=== PATIENT | female | born 1990 | race Caucasian/White ===

== ENCOUNTER 2017-06-27 10:25 | Emergency (ER) | payer OTHER ==
--- NOTE | 2017-06-27 13:23 | OBHP ---
Datetime: 06/27/2017 10:36 IP Adm Impression: Term, intrauterine ; No Active Labor IP Admit Plan: Observation/Evaluation; Discharge home Admit Comment, IP Provider: 26yo with IUP at 39.1wks reporting here today with suspected LOF an d pelvic cramps since 7 am. She denies any VB but feels good movement. [place]-Q 3-6 Fhr: Category 1, Cx-1-2/30/-3, Vertex, Speculum exam: No gross pooling, Nitrazine negat katlyn IUP at 39.1 wks Irregular contractions Plan: Reevaluate in 1 hour. 13:09: Reevaluated. Pt reports that the pain scale3-4, Cx- 1-2/30/-3 Assessment: IUP at 39wks Irregular labor. Plan: D/C home. Labor instructions given. Pt asked to return with strong contractions. F/U with OB clinic if no established labor. Pelvic Type - PN: Adequate Extremities - PN: Normal Abdomen - PN: Normal Back - PN: Normal Breast - PN: Normal Lungs - PN: Normal Heart - PN: Normal Thyroid - PN: Normal Neurologic - PN: Normal HEENT - PN: Normal General - PN: Normal Presentation-Admit: Vertex FHR - Baseline A Provider: 150 Contraction Comments Provider: Q 4-6 Gestation - Est Wks by US: 39.1 IP Chief Complaint: Uterine contractions; Maternal discomfort NICHD Variability Prov Fetus A: Moderate 6-25bpm NICHD Accel Fetus A IP Provider: 15X15 FHR Category Provider Fetus A: Category II NICHD Decel Fetus A IP Provider: None Dilatation, Provider: 2 Effacement, Provider: 30 Station, Provider: -3 Genitourinary Exam: Normal DTRs - PN: Normal
[2017-06-27 13:30] VITALS: RESP 20; O2SAT 99
[2017-06-27 17:32] VITALS: BP 128/82; PULSE 73; TEMP 97.8
== END 2017-06-27 13:29 | disposition home or self-care (01) ==
LOC: C.EROB 10:25
DX: O47.1 False labor at or after 37 completed weeks of gestation (principal); Z3A.39 39 weeks gestation of pregnancy

== ENCOUNTER 2017-06-27 22:38 | Inpatient (IN) | payer OTHER ==
[2017-06-27 22:58] VITALS: BMI 34.2
--- NOTE | 2017-06-27 23:01 | OBADHP ---
Datetime: 06/27/2017 22:51 Admit Comment, IP Provider: IUP at 39wks returns here today c/o increased contractions, Denies VB or Lof. [place]- Q 2-3, FHR- 140s ,Category 1, Cx-3-4/80/-2, Vertex felt Assessment: IUP at 39wks in active labor Plan: Admit to L _ D for labor monitoring. Pelvic Type - PN: Adequate Extremities - PN: Normal Abdomen - PN: Normal Back - PN: Normal Breast - PN: Normal Lungs - PN: Normal Heart - PN: Normal Thyroid - PN: Normal Neurologic - PN: Normal HEENT - PN: Normal General - PN: Normal Presentation-Admit: Vertex FHR - Baseline A Provider: 140 Membranes, Provider: Intact Contraction Comments Provider: Q 2-3 Gestation - Est Wks by US: 39.0 Vital Signs Provider: Reviewed IP Chief Complaint: Uterine contractions; Maternal discomfort NICHD Variability Prov Fetus A: Moderate 6-25bpm NICHD Accel Fetus A IP Provider: 15X15 FHR Category Provider Fetus A: Category I NICHD Decel Fetus A IP Provider: None Dilatation, Provider: 3 Effacement, Provider: 80 Station, Provider: -2 Genitourinary Exam: Normal DTRs - PN: Normal EGA AdmitDate IP: 39.1 IP Adm Impression: Term, intrauterine ; Active labor IP Admit Plan: Admit to unit; Initiate labor protocol
[2017-06-27 23:30] LABS: SQUAMOUS EPITHIAL 1 /hpf (0-5); URINE BACTERIA RARE (<OCC); URINE BILIRUBIN NEGATIVE (NEGATIVE); URINE BLOOD 3+ (NEGATIVE); URINE CLARITY Clear (Clear); URINE COLOR Yellow (YELLOW); URINE GLUCOSE (UA) NORMAL (Normal); URINE LEUKOCYTE ESTERASE TRACE Leu/uL (Negative); URINE NITRATE NEGATIVE (NEGATIVE); URINE PROTEIN NEGATIVE (NEGATIVE); URINE UROBILINOGEN NORMAL mg/dL (0.2-1.0)
[2017-06-27 23:31] LABS: ALBUMIN 3.4 g/dL (3.5-5.0)
[2017-06-27 23:34] LABS: AST/SGOT 17 U/L (14-36); GFR AFRICAN-AMERICAN > 60; GFR NON-AFRICAN AMERICAN > 60
[2017-06-27 23:35] LABS: ALT/SGPT 17 U/L (9-52); BLOOD UREA NITROGEN 8 mg/dL (7-17); CALCIUM 9.1 mg/dl (8.6-10.4)
[2017-06-27 23:50] LABS: BASO % 0.1 % (0.0-2.0); EOS % 0.3 % (0.0-4.0); HEMOGLOBIN 11.2 g/dL (11.0-16.0); LYMPH # 1.8 K/uL (1.0-4.3); LYMPH % 16.1 % (20.0-40.0); MEAN CELL VOLUME 82.8 fL (81.0-99.0); MEAN CORPUSCULAR HEMOGLOBIN 27.1 pg (27.0-31.0); MEAN CORPUSCULAR HGB CONC 32.7 g/dL (33.0-37.0); MEAN PLATELET VOLUME 9.8 fL (7.2-11.7); MONO # 0.7 K/uL (0.0-0.8); NEUT # 8.8 K/uL (1.8-7.0); NEUT % 77.5 % (50.0-75.0); RBC 4.14 Mil/uL (3.80-5.20); RED CELL DISTRIBUTION WIDTH 14.1 % (11.5-14.5); WHITE BLOOD COUNT 11.4 K/uL (4.8-10.8)
[2017-06-28] MEDS ORDERED: Bupivacaine 0.125%/FentaNYL 200 ML EPI ONE (00:29)
[2017-06-28] MEDS: Lactated Ringer's 1,000 ML IV SCH ×2 (06:10)
--- NOTE | 2017-06-28 06:16 | OBPN ---
Datetime: 06/28/2017 06:11 IP Progress Impression: Normal progression of labor; Reassuring heart rate IP Procedures: Artificial ROM; Sterile Vag Exam IP Progress Plan: Continue present management; Anticipate Vaginal Delivery Membranes, Provider: Ruptured Amniotic Fluid Color, Provider: Clear Contraction Comments Provider: Q 2-3 FHR - Baseline A Provider: 150 Gestation - Est Wks by US: 39.2 Presentation-Admit: Vertex IP Progress Note Comment: IUP at 39.2 in labor. Plan: Continue current management. Vital Signs Provider: Within Normal Limits NICHD Accel Fetus A IP Provider: 15X15 FHR Category Provider Fetus A: Category I NICHD Variability Prov Fetus A: Moderate 6-25bpm Dilatation, Provider: 5 Effacement, Provider: 100 Station, Provider: -2 NICHD Decel Fetus A IP Provider: None
--- NOTE | 2017-06-28 08:07 | OBPN ---
Datetime: 06/28/2017 08:01 IP Progress Impression: Normal progression of labor IP Procedures: Sterile Vag Exam IP Progress Plan: Continue present management Contraction Comments Provider: every 1-2 min FHR - Baseline A Provider: 150 Gestation - Est Wks by US: 39.2 Weight - Estimated: 3200 Presentation-Admit: Vertex IP Progress Note Comment: S-patient comfortable with epidural FHT 150s. min- mod baldomero, occ variable Tco ctx q 1-2min sve 9/100/+1 A/P Patient in labor at 39.2 wga . -continue current management -anticipate nvd Vital Signs Provider: Reviewed; Within Normal Limits NICHD Variability Prov Fetus A: Moderate 6-25bpm Dilatation, Provider: 9 Effacement, Provider: 100 Station, Provider: 1 NICHD Decel Fetus A IP Provider: Variable
[2017-06-28] MEDS ORDERED: Lidocaine 2% Inj (20ml) ONE (10:30)
[2017-06-28] MEDS ORDERED: Oxycodone/Acetaminophen 5/325 mg Tab PO PRN ×2 (11:38)
[2017-06-28] MEDS ORDERED: Benzocaine/Menthol 20%-0.5% Topical Spray (60 ml) TOP PRN (11:38)
--- NOTE | 2017-06-28 11:46 | OBDS ---
DELIVERY PERSONNEL Delivery Doctor: Wil Lepe MD Helper Coordinator: Sandra Appiah RN Anesthesiologist: leah MATERNAL INFORMATION Delivery Anesthesia: Epidural Estimated Blood Loss (ml): 350 Placenta Cultured: No Provider Comments: Patient pushing and exhausted.Median episiotomy gdone. of a male from L OA position.Nuchalx1 around neck tight.Cord clamped and cut.Body and shoulders delivered with diffiuc lty. handed over to the pediatrciain.Placenta spontaneously delivered.Episiotomy repaired with 2-0 chromic.Fundus firm.patient stable.ebl 350cc LABOR SUMMARY EDC: 07/03/2017 00:00 No. Babies in Womb: 1 Attempted: No Labor Anesthesia: Epidural LABOR INFORMATION Reason for Induction: Not Applicable Onset of Labor: 06/27/2017 19:00 Complete Dilatation: 06/28/2017 09:10 Oxytocin: N/A Group B Beta Strep: Negative Antibiotics # of Doses: 0 Steroids Given: None Reason Steroids Not Administered: Not Applicable MEMBRANES Membranes Rupture Method: Artificial Rupture of Membranes: 06/28/2017 06:07 Amniotic Fluid Color: Clear Amniotic Fluid Amount: Moderate Amniotic Fluid Odor: Normal STAGES OF LABOR Stage 1 hrs: 14 Stage 1 min: 10 Total Time in Labor hrs: 16 Total Time in Labor min: 5 VAGINAL DELIVERY Episiotomy: Median Laceration Extension: N/A Laceration Type: None Laceration Repair: Not Applicable Laceration Repair Note: episiotomy repiared with 2-0 chromic Initial Vag Sponge Count: 9 Initial Vag Sharps Count: 0 Final Vag Sharps Count: 2 Sponge Count Correct: Yes; Vaginal Sweep Performed Sharps Count Correct: Yes Count Comment: PRESENTATION/POSITION BABY A Presentation: Cephalic Cephalic Presentation: Vertex Vertex Position: Left Occipital Anterior PLACENTA INFORMATION BABY A Placenta Delivery Time : 06/28/2017 11:05 Placenta Method of Delivery: Spontaneous Placenta Status: Delivered SCORES BABY A Heart Rate 1 min: >100 bpm Resp Effort 1 min: Good Cry Reflex Irritability 1 min: Cough or Sneeze or Pulls Away Muscle Tone 1 min: Active Motion Color 1 min: Body [place], Extremities Blue Resuscitation Effort 1 min: Tactile Stimulation SCORE 1 MIN: 9 Heart Rate 5 min: >100 bpm Resp Effort 5 min: Good Cry Reflex Irritability 5 min: Cough or Sneeze or Pulls Away Muscle Tone 5 min: Active Motion Color 5 min: Body [place], Extremities Blue Resuscitation Effort 5 min: Tactile Stimulation SCORE 5 MIN: 9 INFORMATION BABY A Gestational Age at Delivery: 39.2 Gestational Status: Term Outcome : Liveborn Infant Condition : Stable Sex: Male IDENTIFICATION/MEDS BABY A ID Band Number: [id number] ID Band Location: Left Leg; Left Arm Sensor Applied: Yes Sensor Number: [id number] Sensor Location : Cord Clamp Vitamin K Given : Aquamephyton 1 mg IM; Left Thigh Erythromycin Given: Given Both Eyes WEIGHT/LENGTH BABY A Infant Birthweight (gms): 2830 Infant Weight (lb): 6 Infant Weight (oz): 4 Length Inches: 19.00 Length cms: 48.3 CORD INFORMATION BABY A No. Cord Vessels: 3 Nuchal Cord : Around Neck x1, Tight Cord Blood Taken: N/A
[2017-06-29 07:40] VITALS: O2SAT 100
--- NOTE | 2017-06-29 07:45 | OBPPN ---
Datetime: 06/29/2017 07:42 PP Pain Prov: Within normal limits PP Nausea Prov: Denies PP Flatus Prov: Yes PP Abdomen/Uterus Prov: Normal PP Lochia Prov: Normal PP Extremities Prov: Normal PP Comments Phys Exam Prov: fudus below umblicus ext no edema,no calf ten PP Impression Prov: Normal progression PP Plan Prov: Continue present management PP Progress Note Prov: pt was seen at bed side, pain under control,no n/v, tolerating deit,voiding,m in lochia, flatus+ ppd#1 s/p cbc reg deit cont pp care cont pain delio Vital Signs Provider PP: Reviewed; Within Normal Limits
[2017-06-29 08:16] LABS: BASO % 0.2 % (0.0-2.0); EOS # 0.1 K/uL (0.0-0.7); EOS % 0.4 % (0.0-4.0); HEMOGLOBIN 10.8 g/dL (11.0-16.0); LYMPH % 13.3 % (20.0-40.0); MEAN CORPUSCULAR HEMOGLOBIN 27.4 pg (27.0-31.0); MEAN PLATELET VOLUME 9.5 fL (7.2-11.7); MONO # 0.6 K/uL (0.0-0.8); MONO % 3.9 % (0.0-10.0); NEUT # 12.2 K/uL (1.8-7.0); NEUT % 82.2 % (50.0-75.0); RBC 3.92 Mil/uL (3.80-5.20); RED CELL DISTRIBUTION WIDTH 14.2 % (11.5-14.5); WHITE BLOOD COUNT 14.8 K/uL (4.8-10.8)
--- NOTE | 2017-06-30 08:09 | OBDCSUM ---
Datetime: 06/30/2017 08:04 Discharged to, Provider: Home Follow up at, Provider: obgyn clinic Disch Instr Diet: Regular Discharge Instructions, Provider: Routine instructions given Discharge Diagnosis, Provider: Term Delivered Discharge Time: 06/30/2017 08:04 Follow up in weeks, Provider: 6 weeks Disch Activity Restrictions: No exercising; No lifting; No driving; No sexual activity; Nothing in v agina - [place], tampons, douche Discharge Comment, Provider: go to er if you have fever, severe pain, heavy bleeding, pain or rednes s in calf muscles or any other problems
--- NOTE | 2017-06-30 08:12 | OBPPN ---
Datetime: 06/30/2017 08:02 PP Pain Prov: Within normal limits PP Nausea Prov: Denies PP Flatus Prov: Yes PP BM Prov: Yes PP Heart Prov: Normal PP Lungs Prov: Normal PP Lochia Prov: Normal PP CVA Tenderness Prov: Normal PP Extremities Prov: Normal PP C/S Incision Prov: Not Applicable PP Progress Prov: Normal PP Impression Prov: Normal progression PP Plan Prov: Discharge PP Progress Note Prov: S-patient denies any complaints.Denies nausea, vomiting, headache, chest pain , shortness of breath, numbness or tingling in hands and feet O-VSS Afebrile Fundus firm and below umbilcus Extremities no calf tenderness A/P Patient s/p vaginal delivery PPD 2 doing well -discharge today -follow up in clinic in 6 weeks Vital Signs Provider PP: Reviewed; Within Normal Limits
[2017-06-30 08:27] VITALS: BP 123/73; PULSE 90; RESP 18; TEMP 98.9
== END 2017-06-30 11:40 | disposition home or self-care (01) | DRG 373 ==
LOC: C.EROB 22:38 → C.4D 23:04 → C.4M 06-28 14:22
PROVIDERS: ADMIT Obstetrics & Gynecology; ATTEND Obstetrics & Gynecology
PROC: 10E0XZZ Delivery of Products of Conception, External Approach (ICD-10-PCS; principal; 2017-06-28)
PROC: 0W8NXZZ Division of Female Perineum, External Approach (ICD-10-PCS; 2017-06-28)
PROC: 10907ZC Drainage of Amniotic Fluid, Therapeutic from Products of Conception, Via Natural or Artificial Opening (ICD-10-PCS; 2017-06-28)
DX: O69.1XX0 Labor and delivery complicated by cord around neck, with compression, not applicable or unspecified (principal); Z37.0 Single live birth; Z3A.39 39 weeks gestation of pregnancy